=== PATIENT | female | born 1935 | race Caucasian/White ===

== ENCOUNTER 2019-05-28 01:19 | Inpatient (IN) | payer MEDICARE, BC ==
[~2019-05-28] VITALS: Ht 170.2 cm; Wt 64.5 kg
[2019-05-28] MEDS ORDERED: CLOP75TA35 PO (02:01)
[2019-05-28] MEDS ORDERED: TOPI50TA PO (02:01)
[2019-05-28] MEDS ORDERED: FIBER PO (02:01)
[2019-05-28] MEDS ORDERED: MEMA5TAB PO (02:01)
[2019-05-28] MEDS ORDERED: SYN0.088T PO (02:01)
[2019-05-28] MEDS ORDERED: RIVA1.5C PO (02:01)
[2019-05-28] MEDS ORDERED: PARO20TA6 PO (02:01)
[2019-05-28] MEDS ORDERED: docusate sod 100mg capsule PO PRN (02:45)
[2019-05-28] MEDS ORDERED: morphine 2 MG/ML inj. syringe IV PRN ×2 (02:45)
[2019-05-28] MEDS ORDERED: ondansetron/PF 4mg/2ml inj IV PRN (02:45)
[2019-05-28] MEDS ORDERED: potassium CL 10mEq/100ml bag 100 ML IV PRN ×2 (02:45)
[2019-05-28] MEDS ORDERED: magnesium 4gm in 100ml NS 100 ML IV PRN (02:45)
[2019-05-28] MEDS ORDERED: potassium Cl 20 mEq SR tablet PO PRN (02:45)
[2019-05-28] MEDS ORDERED: magnesium 2GM in 50ml NS 50 ML IV PRN (02:45)
[2019-05-28] MEDS ORDERED: normal saline 1000ml 1,000 ML IV SCH (02:55)
[2019-05-28] MEDS: tamsulosin 0.4mg capsule PO SCH ×2 (04:00→21:10)
[2019-05-28] MEDS: normal saline 1000ml 1,000 ML IV SCH ×2 (04:00→12:55)
--- NOTE | 2019-05-28 04:51 | NUR ---
Received report from BJORN Eddy. Awaiting arrival to the unit.
--- NOTE | 2019-05-28 05:30 | NUR ---
Patient arrived to the floor via gurney. Placed in room 358B. Patient is awake and alert on 2L NC, in no apparent distress. Call light and items of frequent use within reach. Family at bedside. Will continue to monitor.
[2019-05-28 05:55] VITALS: BP 94/45
--- NOTE | 2019-05-28 06:29 | NUR ---
Problems reprioritized. Patient report given, questions answered & plan of care reviewed with BJORN Hernandez.
--- NOTE | 2019-05-28 06:30 | NUR ---
Patient in room [facility] 358. I have received report from HARI MILAN and had the opportunity to ask questions and assume patient care.
--- NOTE | 2019-05-28 06:53 | NUR ---
Patient in room [facility] 358. I have received report from Night nurses and had the opportunity to ask questions and assume patient care.
[2019-05-28 08:00] VITALS: BP 126/75
[2019-05-28] MEDS: calcium polycarbophil 625mg tablet PO SCH (08:00)
[2019-05-28] MEDS ORDERED: levoTHYROXINE 88mcg tablet PO SCH (08:00)
[2019-05-28] MEDS ORDERED: PARoxetine 20mg tablet PO SCH (08:00)
[2019-05-28] MEDS: enoxaparin 40mg/0.4ml syringe SQ SCH (08:00)
[2019-05-28] MEDS: K and/or MAG REPLACEMENT MC SCH (08:00)
[2019-05-28] MEDS ORDERED: tolterodine 2mg SR capsule (24hr) PO ONE (08:00)
[2019-05-28] MEDS ORDERED: CefTRIAXone/D5W-Rocephin 1gm 50 ML IV SCH (08:00)
[2019-05-28 08:07] VITALS: BP 84/52
[2019-05-28] MEDS: memantine 5mg tablet PO SCH ×2 (08:44→21:10)
--- NOTE | 2019-05-28 09:57 | NUR ---
Student Medication Administration: For this medication-pass time frame, all medication were reviewed, dispensed, administered and documented per hospital policy by gus Ferrell.
[2019-05-28] MEDS ORDERED: FLU VACC QS2019-20 36MOS UP/PF 60 MCG/0.5 ML SYRINGE IMVAC ONE (10:00)
[2019-05-28 11:51] VITALS: BP 102/53
--- NOTE | 2019-05-28 11:59 | NUR ---
Student documentation: I have reviewed and agree with all interventions, assessments performed and documented by Mariaelena, nursing assoc.
--- NOTE | 2019-05-28 12:00 | NUR ---
Problems reprioritized. Patient report given, questions answered & plan of care reviewed with Victoria nursing program coordinator.
[2019-05-28 13:17] LABS: BASOPHILS % (AUTO) 0.1 % (0-1); EOSINOPHILS % (AUTO) 0 % (0-6); HEMATOCRIT 27.6 % (35.0-45.0); LYMPHOCYTES # (AUTO) 1.1 X10'3 (1.1-4.8); LYMPHOCYTES % (AUTO) 6.2 % (21-51); MEAN CORPUSCULAR HEMOGLOBIN 28.5 PG (27.0-31.0); MEAN CORPUSCULAR HGB CONC 32.7 g/dL (33.0-36.5); MEAN CORPUSCULAR VOLUME 87.1 FL (78-98); MEAN PLATELET VOLUME 7.5 FL (7.4-10.4); MONOCYTES # (AUTO) 1.5 X10'3 (0-0.9); MONOCYTES % (AUTO) 8.7 % (2-12); NEUTROPHILS # (AUTO) 14.9 X10'3 (1.8-7.7); PLATELET COUNT 124 X10'3 (140-440); RED BLOOD COUNT 3.17 X10'6 (4.20-5.60); RED CELL DISTRIBUTION WIDTH 14.2 % (11.5-14.5); WHITE BLOOD COUNT 17.5 X10'3 (4.5-11.0)
[2019-05-28] MEDS ORDERED: FLUO-1 PO (14:38)
[2019-05-28] MEDS ORDERED: LEVO112T5 PO (14:38)
[2019-05-28 14:41] LABS: ALBUMIN 1.9 G/DL (3.4-5.0); ANION GAP 15 (8-16); BLOOD UREA NITROGEN 20 MG/DL (7-18); BUN/CREATININE RATIO 17.1 (6.6-38.0); CALCIUM 6.2 MG/DL (8.5-10.1); CHLORIDE 115 MMOL/L (99-107); CREATININE 1.17 MG/DL (0.40-0.90); GLUCOSE 95 MG/DL (70-104); SODIUM 145 MMOL/L (135-145); TOTAL CARBON DIOXIDE 15.4 MMOL/L (24-32); eGFR 44 ML/MIN
[2019-05-28 14:48] LABS: POTASSIUM 2.8 MMOL/L (3.5-5.1)
--- NOTE | 2019-05-28 15:06 | NUR ---
Initial: Pt admit with sepsis secondary to UTI and a right-sided kidney stone causing moderate hydronephrosis. Pt a poor historian, confused, and A/O x 1 with underlying dementia, not appropriate for protein education at this time. Pt currently NPO. [facility] 05/28. Will continue to follow. Recommendations: 1) Advance to regular diet as medically indicated 2) Monitor need for ONS with diet advancement 3) Wt per rx Addendum: 05/28/19 at [address] Amended: Links added.
[2019-05-28] MEDS ORDERED: dextrose 5%-1/2 normal saline 1,000 ML IV SCH (17:45)
[2019-05-28] MEDS: dextrose 5%-normal saline 1,000 ML IV SCH (18:13)
--- NOTE | 2019-05-28 18:30 | NUR ---
Problems reprioritized. Patient report given, questions answered & plan of care reviewed with GENNA MILAN.
--- NOTE | 2019-05-28 18:30 | NUR ---
Patient in room [facility] 358. I have received report from DOROTHY and had the opportunity to ask questions and assume patient care.
[2019-05-28] MEDS: piperacillin/tazo 3.375gm/50ml 50 ML IV SCH (18:49)
[2019-05-28 19:10] VITALS: BP 123/48
[2019-05-28 19:17] LABS: POTASSIUM 3.3 MMOL/L (3.5-5.1)
[2019-05-28] MEDS: acetaminophen 325mg tablet PO PRN (19:20)
[2019-05-28] MEDS: potassium Cl 20 mEq SR tablet PO PRN (21:10)
[2019-05-28] MEDS: lactobacillus rhamnosus 10,000 MMU CELLS/CAPSULE PO SCH (21:10)
[2019-05-28] MEDS: topiramate 25mg tablet PO SCH (21:10)
[2019-05-28 23:00] VITALS: BP 99/60
[2019-05-29] VITALS (14 sets, daily range): BP systolic 104–132; BP diastolic 32–77
[2019-05-29] MEDS: piperacillin/tazo 3.375gm/50ml 50 ML IV SCH ×5 (00:18→23:37)
[2019-05-29] MEDS: dextrose 5%-normal saline 1,000 ML IV SCH ×3 (02:37→23:37)
[2019-05-29] MEDS: acetaminophen 325mg tablet PO PRN (02:53)
[2019-05-29 03:09] LABS: CLARITY,URINE CLEAR (Clear); COLOR,URINE YELLOW (Yellow); GLUCOSE, URINE NEGATIVE (Neg); KETONES,URINE TRACE mg/dl (Neg); LEUKOCYTE ESTERASE ,URINE NEGATIVE (Neg); NITRITES, URINE NEGATIVE (Neg); OCCULT BLOOD,URINE MODERATE (Neg); PROTEIN,URINE 30 mg/dl (Neg); UROBILINOGEN,URINE 0.2 E.U/dL (0.2-1.0)
[2019-05-29 03:21] LABS: UA COLLECTION TYPE CLN CATCH MIDSTREAM
[2019-05-29 03:27] LABS: BACTERIA,URINE 1+ /HPF (Neg); RBC,URINE 0-2 /HPF (0-2); SQUAMOUS EPITHELIAL CELL,UR MODERATE /LPF (FEW); TRANSITIONAL EPI CELLS,URINE FEW /HPF
[2019-05-29 03:28] LABS: CELLULAR CAST 0-4 /LPF (NEGATIVE); HYALINE CASTS 0-3 /LPF (NEGATIVE)
[2019-05-29 06:04] LABS: PARTIAL THROMBOPLASTIN TIME 33 SECONDS (22-32)
[2019-05-29 06:30] LABS: ANION GAP 14 (8-16); BLOOD UREA NITROGEN 24 MG/DL (7-18); CALCIUM 6.9 MG/DL (8.5-10.1); CHLORIDE 107 MMOL/L (99-107); GLUCOSE 157 MG/DL (70-104); MAGNESIUM 1.4 MG/DL (1.5-2.4); POTASSIUM 3.1 MMOL/L (3.5-5.1); SODIUM 138 MMOL/L (135-145); TOTAL CARBON DIOXIDE 16.8 MMOL/L (24-32); eGFR 33 ML/MIN
[2019-05-29 06:31] LABS: ALANINE AMINOTRANSFERASE 72 U/L (12-78); ALBUMIN 2.3 G/DL (3.4-5.0); ALBUMIN/GLOBULIN RATIO 0.6 (1.1-1.5); ALKALINE PHOSPHATASE 67 IU/L (46-116); ASPARTATE AMINO TRANSFERASE 94 U/L (10-37); BILIRUBIN,TOTAL 0.3 MG/DL (0.1-1.0); TOTAL PROTEIN 5.9 G/DL (6.4-8.2)
--- NOTE | 2019-05-29 06:41 | NUR ---
Problems reprioritized. Patient report given, questions answered & plan of care reviewed with
[2019-05-29 07:02] LABS: BASOPHILS % (AUTO) 0.3 % (0-1); EOSINOPHILS % (AUTO) 0.1 % (0-6); HEMATOCRIT 30.5 % (35.0-45.0); HEMOGLOBIN 10.3 g/dl (12.0-16.0); LYMPHOCYTES # (AUTO) 0.5 X10'3 (1.1-4.8); LYMPHOCYTES % (AUTO) 4.1 % (21-51); MEAN CORPUSCULAR HEMOGLOBIN 28.4 PG (27.0-31.0); MEAN CORPUSCULAR HGB CONC 33.9 g/dL (33.0-36.5); MEAN CORPUSCULAR VOLUME 83.9 FL (78-98); MEAN PLATELET VOLUME 8.2 FL (7.4-10.4); MONOCYTES # (AUTO) 0.6 X10'3 (0-0.9); MONOCYTES % (AUTO) 4.8 % (2-12); NEUTROPHILS % (AUTO) 90.7 % (42-75); PLATELET COUNT 128 X10'3 (140-440); RED BLOOD COUNT 3.64 X10'6 (4.20-5.60); RED CELL DISTRIBUTION WIDTH 14.1 % (11.5-14.5); WHITE BLOOD COUNT 12.2 X10'3 (4.5-11.0)
[2019-05-29] MEDS: memantine 5mg tablet PO SCH ×2 (08:00→20:42)
[2019-05-29] MEDS: enoxaparin 40mg/0.4ml syringe SQ SCH (08:00)
[2019-05-29] MEDS ORDERED: FLUoxetine 20mg capsule PO SCH (08:00)
[2019-05-29] MEDS: calcium polycarbophil 625mg tablet PO SCH (08:00)
[2019-05-29] MEDS: K and/or MAG REPLACEMENT MC SCH (08:00)
[2019-05-29] MEDS: levoTHYROXINE 112mcg tablet PO SCH (08:00)
[2019-05-29] MEDS: lactobacillus rhamnosus 10,000 MMU CELLS/CAPSULE PO SCH ×2 (08:00→20:42)
[2019-05-29] MEDS: FLUoxetine 20mg capsule PO SCH (08:00)
[2019-05-29] MEDS ORDERED: levoTHYROXINE 112mcg tablet PO SCH (08:00)
[2019-05-29] MEDS ORDERED: iohexol 300 MG/1 ML 50ml polymer ONE (15:40)
[2019-05-29] MEDS ORDERED: sevoflurane 250ml liquid IH ONE (16:04)
[2019-05-29] MEDS ORDERED: fentaNYL/PF 50MCG/1 ML 2ML syringe ONE (16:09)
[2019-05-29] MEDS ORDERED: sugammadex 200mg/2ml injection IV ONE (16:23)
[2019-05-29] MEDS ORDERED: rocuronium 10mg/ml inj IV ONE (16:45)
[2019-05-29] MEDS ORDERED: dexamethasone sod phosphate 4mg/ml inj. ONE (16:45)
[2019-05-29] MEDS ORDERED: LIDOcaine 2% (20mg/ml) 5ml vial ONE (16:45)
[2019-05-29] MEDS ORDERED: propofol inj 20 ML IV ONE (16:45)
[2019-05-29] MEDS ORDERED: ondansetron/PF 4mg/2ml inj ONE (16:45)
--- NOTE | 2019-05-29 17:30 | NUR ---
PATIENT ALERT AND BACK TO BASE LINE, DENIES PAIN, V/S WNL, NEUROVASCULAR CHECKS INTACT, 20G PIV LUE, SCD ON, PATIENT TAKEN TO 358B WITH ALL BELONGINGS AND HOOKED UP TO MONITORS IN ROOM AND REPORT GIVEN TO RN WHO HAS TAKEN OVER PATIENT CARE
[2019-05-29] MEDS ORDERED: benzocaine/menthol oral lozeng 1 EACH BOX MM PRN (18:00)
[2019-05-29] MEDS ORDERED: HYDROcodone/acetaminophen 5mg/325mg tablet PO PRN (19:40)
[2019-05-29] MEDS: potassium Cl 20 mEq SR tablet PO PRN (20:41)
[2019-05-29] MEDS: topiramate 25mg tablet PO SCH (20:42)
[2019-05-29] MEDS: tamsulosin 0.4mg capsule PO SCH (20:42)
--- NOTE | 2019-05-29 22:33 | NUR ---
Patient in room [facility] 358. I have received report from BJORN Pineda and had the opportunity to ask questions and assume patient care. Addendum: 05/29/19 at 2234 by Margaret Fam RN Amended: Links added.
[2019-05-30 04:49] VITALS: BP 95/51
[2019-05-30 06:03] LABS: BASOPHILS % (AUTO) 0 % (0-1); EOSINOPHILS % (AUTO) 0 % (0-6); HEMOGLOBIN 9.8 g/dl (12.0-16.0); LYMPHOCYTES # (AUTO) 0.6 X10'3 (1.1-4.8); LYMPHOCYTES % (AUTO) 7.2 % (21-51); MEAN CORPUSCULAR HEMOGLOBIN 29.1 PG (27.0-31.0); MEAN CORPUSCULAR HGB CONC 33.9 g/dL (33.0-36.5); MEAN CORPUSCULAR VOLUME 85.9 FL (78-98); MEAN PLATELET VOLUME 8.4 FL (7.4-10.4); MONOCYTES # (AUTO) 0.3 X10'3 (0-0.9); MONOCYTES % (AUTO) 3.7 % (2-12); NEUTROPHILS # (AUTO) 7.5 X10'3 (1.8-7.7); NEUTROPHILS % (AUTO) 89.1 % (42-75); PLATELET COUNT 129 X10'3 (140-440); RED BLOOD COUNT 3.38 X10'6 (4.20-5.60); RED CELL DISTRIBUTION WIDTH 14.6 % (11.5-14.5); WHITE BLOOD COUNT 8.4 X10'3 (4.5-11.0)
--- NOTE | 2019-05-30 06:28 | NUR ---
Problems reprioritized. Patient report given, questions answered & plan of care reviewed with BJORN Casey. Addendum: 05/30/19 at 0629 by Margaret Fam RN Amended: Links added.
[2019-05-30 06:40] LABS: ALANINE AMINOTRANSFERASE 59 U/L (12-78); ALBUMIN 2.1 G/DL (3.4-5.0); ALBUMIN/GLOBULIN RATIO 0.6 (1.1-1.5); ALKALINE PHOSPHATASE 65 IU/L (46-116); ANION GAP 10 (8-16); ASPARTATE AMINO TRANSFERASE 55 U/L (10-37); BILIRUBIN,TOTAL 0.2 MG/DL (0.1-1.0); BLOOD UREA NITROGEN 15 MG/DL (7-18); BUN/CREATININE RATIO 15.3 (6.6-38.0); CALCIUM 6.9 MG/DL (8.5-10.1); CHLORIDE 110 MMOL/L (99-107); CREATININE 0.98 MG/DL (0.40-0.90); GLUCOSE 190 MG/DL (70-104); MAGNESIUM 2.6 MG/DL (1.5-2.4); POTASSIUM 4.2 MMOL/L (3.5-5.1); SODIUM 140 MMOL/L (135-145); TOTAL CARBON DIOXIDE 19.8 MMOL/L (24-32); TOTAL PROTEIN 5.9 G/DL (6.4-8.2); eGFR 54 ML/MIN
[2019-05-30 08:00] VITALS: BP 113/59
[2019-05-30] MEDS ORDERED: FLU VACC QS2019-20 36MOS UP/PF 60 MCG/0.5 ML SYRINGE IMVAC ONE (08:00)
[2019-05-30] MEDS: calcium polycarbophil 625mg tablet PO SCH (08:00)
[2019-05-30] MEDS: levoTHYROXINE 112mcg tablet PO SCH (08:22)
[2019-05-30] MEDS: lactobacillus rhamnosus 10,000 MMU CELLS/CAPSULE PO SCH ×2 (08:23→20:33)
[2019-05-30] MEDS: memantine 5mg tablet PO SCH ×2 (08:23→20:33)
[2019-05-30] MEDS: FLUoxetine 20mg capsule PO SCH (08:23)
[2019-05-30] MEDS: enoxaparin 40mg/0.4ml syringe SQ SCH (08:24)
[2019-05-30] MEDS: K and/or MAG REPLACEMENT MC SCH (08:25)
[2019-05-30] MEDS: piperacillin/tazo 3.375gm/50ml 50 ML IV SCH ×2 (08:25→17:07)
[2019-05-30] MEDS: dextrose 5%-normal saline 1,000 ML IV SCH ×2 (12:00→16:44)
[2019-05-30 12:07] VITALS: BP 119/64
--- NOTE | 2019-05-30 14:25 | NUR ---
pts tele monitor removed per ok from Dr. Moreland.
--- NOTE | 2019-05-30 17:11 | NUR ---
Page to Dr. Moreland - pt requesting something for her dry cough. Lungs clear to auscultation.
--- NOTE | 2019-05-30 18:14 | NUR ---
Problems reprioritized. Patient report given, questions answered & plan of care reviewed with BJORN Arreola.
--- NOTE | 2019-05-30 18:45 | NUR ---
Patient in room [facility] 358. I have received report from BJORN Casey and had the opportunity to ask questions and assume patient care.
[2019-05-30 20:00] VITALS: BP 130/72
[2019-05-30] MEDS: guaiFENesin/DM 10ml UD oral syrup PO PRN (20:33)
[2019-05-30] MEDS: tamsulosin 0.4mg capsule PO SCH (20:33)
[2019-05-30] MEDS: topiramate 25mg tablet PO SCH (20:34)
[2019-05-31] VITALS: BP 141/71
[2019-05-31] MEDS: piperacillin/tazo 3.375gm/50ml 50 ML IV SCH ×2 (00:18→08:57)
[2019-05-31] MEDS: guaiFENesin/DM 10ml UD oral syrup PO PRN ×2 (05:10→20:55)
[2019-05-31 05:49] LABS: BASOPHILS % (AUTO) 0.2 % (0-1); EOSINOPHILS # (AUTO) 0.2 X10'3 (0-0.9); EOSINOPHILS % (AUTO) 1.7 % (0-6); HEMATOCRIT 29.8 % (35.0-45.0); LYMPHOCYTES # (AUTO) 1.3 X10'3 (1.1-4.8); LYMPHOCYTES % (AUTO) 13.3 % (21-51); MEAN CORPUSCULAR HEMOGLOBIN 28.4 PG (27.0-31.0); MEAN CORPUSCULAR HGB CONC 33.6 g/dL (33.0-36.5); MEAN CORPUSCULAR VOLUME 84.7 FL (78-98); MEAN PLATELET VOLUME 8.6 FL (7.4-10.4); MONOCYTES # (AUTO) 0.8 X10'3 (0-0.9); MONOCYTES % (AUTO) 8.5 % (2-12); NEUTROPHILS # (AUTO) 7.2 X10'3 (1.8-7.7); NEUTROPHILS % (AUTO) 76.3 % (42-75); PLATELET COUNT 158 X10'3 (140-440); RED BLOOD COUNT 3.52 X10'6 (4.20-5.60); RED CELL DISTRIBUTION WIDTH 14.2 % (11.5-14.5); WHITE BLOOD COUNT 9.5 X10'3 (4.5-11.0)
[2019-05-31 06:10] LABS: ALANINE AMINOTRANSFERASE 68 U/L (12-78); ALBUMIN 2.2 G/DL (3.4-5.0); ALBUMIN/GLOBULIN RATIO 0.6 (1.1-1.5); ALKALINE PHOSPHATASE 70 IU/L (46-116); ANION GAP 11 (8-16); ASPARTATE AMINO TRANSFERASE 51 U/L (10-37); BILIRUBIN,TOTAL 0.3 MG/DL (0.1-1.0); BLOOD UREA NITROGEN 13 MG/DL (7-18); BUN/CREATININE RATIO 14.8 (6.6-38.0); CALCIUM 7.2 MG/DL (8.5-10.1); CHLORIDE 112 MMOL/L (99-107); CREATININE 0.88 MG/DL (0.40-0.90); GLUCOSE 100 MG/DL (70-104); MAGNESIUM 2.4 MG/DL (1.5-2.4); POTASSIUM 3.2 MMOL/L (3.5-5.1); SODIUM 143 MMOL/L (135-145); TOTAL CARBON DIOXIDE 20.4 MMOL/L (24-32); TOTAL PROTEIN 5.8 G/DL (6.4-8.2); eGFR 61 ML/MIN
--- NOTE | 2019-05-31 06:12 | NUR ---
Problems reprioritized. Patient report given, questions answered & plan of care reviewed with BJORN Mayberry.
[2019-05-31 06:50] LABS: PLATELET ESTIMATE NORMAL; TOTAL CELLS COUNTED 100
[2019-05-31 06:51] LABS: BURR CELLS FEW; POLYCHROMASIA FEW; SCHISTOCYTES FEW
[2019-05-31 07:00] VITALS: BP 119/65
[2019-05-31] MEDS: calcium polycarbophil 625mg tablet PO SCH (08:00)
[2019-05-31] MEDS: K and/or MAG REPLACEMENT MC SCH (08:00)
[2019-05-31] MEDS: lactobacillus rhamnosus 10,000 MMU CELLS/CAPSULE PO SCH ×2 (08:57→20:55)
[2019-05-31] MEDS: levoTHYROXINE 112mcg tablet PO SCH (08:57)
[2019-05-31] MEDS: memantine 5mg tablet PO SCH ×2 (08:58→20:55)
[2019-05-31] MEDS: FLUoxetine 20mg capsule PO SCH (08:58)
[2019-05-31] MEDS: enoxaparin 40mg/0.4ml syringe SQ SCH (08:59)
[2019-05-31] MEDS ORDERED: magnesium Cl slow-release 64mg tablet PO PRN (10:20)
[2019-05-31] MEDS ORDERED: potassium Cl 20 mEq SR tablet PO PRN (10:20)
[2019-05-31] MEDS ORDERED: magnesium 4gm in 100ml NS 100 ML IV PRN (10:20)
[2019-05-31] MEDS ORDERED: potassium CL 10mEq/100ml bag 100 ML IV PRN (10:20)
[2019-05-31] MEDS: potassium Cl 20 mEq SR tablet PO PRN ×3 (10:47→21:22)
--- NOTE | 2019-05-31 11:27 | NUR ---
Reassessment: Pt s/p cystoscopy with right ureteral stent placement. Sepsis score 0 per physical assessment. Diet has been advanced to regular and pt documented with average 75% PO intake, 50% with initial diet advancement, likely meeting nutrient needs for geriatric age. [facility] 05/30. Will continue to follow. Recommendations: 1) Continue regular diet 2) Monitor need for ONS 3) Wt per rx Addendum: 05/31/19 at [address] Amended: Links added.
[2019-05-31 12:00] VITALS: BP 128/64
[2019-05-31] MEDS ORDERED: furosemide 40mg/4ml inj IV ONE (17:20)
[2019-05-31 18:00] VITALS: BP 153/75
[2019-05-31 18:03] VITALS: BP 125/71
--- NOTE | 2019-05-31 18:26 | NUR ---
Patient in room [facility] 358. I have received report from BJORN Lam and had the opportunity to ask questions and assume patient care.
[2019-05-31] MEDS: tamsulosin 0.4mg capsule PO SCH (20:55)
[2019-05-31] MEDS: topiramate 25mg tablet PO SCH (20:55)
[2019-06-01] VITALS: BP 157/80
[2019-06-01 06:22] LABS: BASOPHILS % (AUTO) 0.4 % (0-1); EOSINOPHILS # (AUTO) 0.8 X10'3 (0-0.9); EOSINOPHILS % (AUTO) 8.2 % (0-6); HEMATOCRIT 32.7 % (35.0-45.0); HEMOGLOBIN 11.2 g/dl (12.0-16.0); LYMPHOCYTES # (AUTO) 2.3 X10'3 (1.1-4.8); LYMPHOCYTES % (AUTO) 24.5 % (21-51); MEAN CORPUSCULAR HEMOGLOBIN 28.8 PG (27.0-31.0); MEAN CORPUSCULAR HGB CONC 34.4 g/dL (33.0-36.5); MEAN CORPUSCULAR VOLUME 83.7 FL (78-98); MONOCYTES # (AUTO) 1.5 X10'3 (0-0.9); MONOCYTES % (AUTO) 16.5 % (2-12); NEUTROPHILS # (AUTO) 4.7 X10'3 (1.8-7.7); NEUTROPHILS % (AUTO) 50.4 % (42-75); PLATELET COUNT 238 X10'3 (140-440); RED BLOOD COUNT 3.91 X10'6 (4.20-5.60); RED CELL DISTRIBUTION WIDTH 14.4 % (11.5-14.5); WHITE BLOOD COUNT 9.3 X10'3 (4.5-11.0)
--- NOTE | 2019-06-01 06:31 | NUR ---
Problems reprioritized. Patient report given, questions answered & plan of care reviewed with BJORN Lam.
[2019-06-01 06:43] LABS: ALANINE AMINOTRANSFERASE 66 U/L (12-78); ALBUMIN 2.4 G/DL (3.4-5.0); ALBUMIN/GLOBULIN RATIO 0.6 (1.1-1.5); ALKALINE PHOSPHATASE 70 IU/L (46-116); ANION GAP 9 (8-16); ASPARTATE AMINO TRANSFERASE 42 U/L (10-37); BILIRUBIN,TOTAL 0.3 MG/DL (0.1-1.0); BLOOD UREA NITROGEN 7 MG/DL (7-18); BUN/CREATININE RATIO 9.3 (6.6-38.0); CALCIUM 7.5 MG/DL (8.5-10.1); CHLORIDE 108 MMOL/L (99-107); CREATININE 0.75 MG/DL (0.40-0.90); GLUCOSE 74 MG/DL (70-104); MAGNESIUM 1.7 MG/DL (1.5-2.4); POTASSIUM 3.5 MMOL/L (3.5-5.1); SODIUM 142 MMOL/L (135-145); TOTAL CARBON DIOXIDE 24.8 MMOL/L (24-32); TOTAL PROTEIN 6.3 G/DL (6.4-8.2); eGFR 73 ML/MIN
[2019-06-01] MEDS: calcium polycarbophil 625mg tablet PO SCH (06:51)
[2019-06-01 07:22] LABS: ANISOCYTOSIS 1+; MICROCYTOSIS 1+; PLATELET ESTIMATE NORMAL; TOTAL CELLS COUNTED 100
[2019-06-01] MEDS: K and/or MAG REPLACEMENT MC SCH (07:43)
[2019-06-01] MEDS: lactobacillus rhamnosus 10,000 MMU CELLS/CAPSULE PO SCH (07:47)
[2019-06-01] MEDS: FLUoxetine 20mg capsule PO SCH (07:47)
[2019-06-01] MEDS: levoTHYROXINE 112mcg tablet PO SCH (07:47)
[2019-06-01] MEDS: memantine 5mg tablet PO SCH (07:48)
[2019-06-01] MEDS: enoxaparin 40mg/0.4ml syringe SQ SCH (07:49)
[2019-06-01 11:00] VITALS: BP 134/65
[2019-06-01] MEDS ORDERED: furosemide 40mg/4ml inj IV ONE (11:00)
[2019-06-01] MEDS ORDERED: tamsulosin capsule PO (11:53)
[2019-06-01] MEDS ORDERED: AMOX-422 PO (11:56)
[2019-06-01] MEDS ORDERED: FURO-150 PO (11:57)
[2019-06-01] MEDS ORDERED: POTA10TA36 PO (11:59)
--- NOTE | 2019-06-01 16:56 | NUR ---
PT DISCHARGED IN STABLE CONDITION. LEFT WITH DAUGHTER IN PRIVATE VEHICLE. IV DC CANULA INTACT. FOLLOW INSTRUCTIONS GIVEN, ALL QUESTIONS ANSWERED. Addendum: 06/01/19 at 1659 by Shawanda Faith RN Amended: Links added.
== END 2019-06-01 16:50 | disposition home or self-care (01) | DRG 853 ==
LOC: ER 01:21 → ED HOLD 02:44 → SUR 3N 04:47
PROVIDERS: ADMIT Family Medicine; ATTEND Internal Medicine
PROC: BT1D1ZZ Fluoroscopy of Right Kidney, Ureter and Bladder using Low Osmolar Contrast (ICD-10-PCS; 2019-05-29)
PROC: 0T768DZ Dilation of Right Ureter with Intraluminal Device, Via Natural or Artificial Opening Endoscopic (ICD-10-PCS; principal; 2019-05-29 16:04)
PROC: 3E02340 Introduction of Influenza Vaccine into Muscle, Percutaneous Approach (ICD-10-PCS; 2019-05-30)
DX: A41.9 Sepsis, unspecified organism (principal); G93.41 Metabolic encephalopathy; J18.9 Pneumonia, unspecified organism; N13.6 Pyonephrosis; J90 Pleural effusion, not elsewhere classified; R65.20 Severe sepsis without septic shock; E05.00 Thyrotoxicosis with diffuse goiter without thyrotoxic crisis or storm; G30.9 Alzheimer's disease, unspecified; R51 Headache; F02.80 Dementia in other diseases classified elsewhere, unspecified severity, without behavioral disturbance, psychotic disturbance, mood disturbance, and anxiety; E87.6 Hypokalemia; F32.9 Major depressive disorder, single episode, unspecified; Z79.02 Long term (current) use of antithrombotics/antiplatelets; Z86.73 Personal history of transient ischemic attack (TIA), and cerebral infarction without residual deficits; Z87.891 Personal history of nicotine dependence; Z90.710 Acquired absence of both cervix and uterus; Z79.899 Other long term (current) drug therapy; Z23 Encounter for immunization
CPT/HCPCS: 36415; 71045; 71250; 74176; 76000; 80048; 80053; 81001; 83605; 83735; 83880; 84132; 84145; 84443; 85025; 85610; 85730; 87040; 87081; 87088; 93005; 93306; 99285; A4618; C1758; C1769; C2617; C9399; G0378; J0696; J1100; J1650; J1940; J2001; J2405; J2543; J2704; J3010; J3475; J7030; J7042; J7120; Q9967